=== PATIENT | male | born 1940 | race Caucasian/White ===

== ENCOUNTER → 2017-09-20 | Outpatient (CLI) | payer MEDICARE, OTHER ==
[~2017-09-20] MED LIST: ALLO300T2 PO; AMLO5TAB66 PO; ASPI325T52 PO; ATEN-187 PO; CALC600T2 PO; FINA5TAB2 PO; FOSI20TA3 PO; METF1000 PO; NITR0.4T50 SL; OXYB15TA3 PO; PIOG45TA4 PO; SIMV80TA2 PO; SITA1TAB2 PO
== END | disposition home or self-care (01) ==
LOC: RADPV 09:13
PROVIDERS: ATTEND Legal Medicine
DX: M19.011 Primary osteoarthritis, right shoulder (principal)

== ENCOUNTER → 2017-09-24 | Outpatient (CLI) | payer MEDICARE, OTHER | END | disposition home or self-care (01) | LOC: RADPV 10:42 | PROVIDERS: ATTEND Legal Medicine | DX: J85.2 Abscess of lung without pneumonia (principal); I70.0 Atherosclerosis of aorta | CPT/HCPCS: 71046 ==

== ENCOUNTER → 2019-01-27 | Outpatient (CLI) | payer MEDICARE, OTHER ==
[~2019-01-27] MED LIST changes: -ASPI325T52 PO; -FOSI20TA3 PO; +FOSI20TA66 PO; +[UNRECOGNIZED DRUG - CODE] PO
== END | disposition home or self-care (01) ==
LOC: RADPV 10:32
PROVIDERS: ATTEND Legal Medicine
DX: S62.336A Displaced fracture of neck of fifth metacarpal bone, right hand, initial encounter for closed fracture (principal); M19.041 Primary osteoarthritis, right hand; M79.89 Other specified soft tissue disorders; X58.XXXA Exposure to other specified factors, initial encounter; Y93.89 Activity, other specified; Y92.89 Other specified places as the place of occurrence of the external cause; Y99.8 Other external cause status

== ENCOUNTER → 2019-07-01 | Outpatient (CLI) | payer MEDICARE, OTHER ==
[~2019-07-01] MED LIST changes: +ASPI-1515 PO; -[UNRECOGNIZED DRUG - CODE] PO
== END | disposition home or self-care (01) ==
LOC: RADPV 08:46
PROVIDERS: ATTEND Legal Medicine
DX: M19.071 Primary osteoarthritis, right ankle and foot (principal); M79.89 Other specified soft tissue disorders

== ENCOUNTER → 2019-07-03 | Outpatient (CLI) | payer MEDICARE, OTHER | END | disposition home or self-care (01) | LOC: RADPV 08:24 | PROVIDERS: ATTEND Legal Medicine | DX: J44.9 Chronic obstructive pulmonary disease, unspecified (principal); M85.88 Other specified disorders of bone density and structure, other site; J18.9 Pneumonia, unspecified organism | CPT/HCPCS: 71100; 71120 ==

== ENCOUNTER → 2020-03-25 | Outpatient (CLI) | payer MEDICARE, OTHER ==
[2020-03-25 10:22] LABS: BASOPHILS % (AUTO) 0.4 % (0.0-2.0); EOSINOPHILS % (AUTO) 3.5 % (1.0-6.0); HEMATOCRIT 36.5 % (41-53); HEMOGLOBIN 12.2 g/dL (13.5-17.5); LYMPHOCYTES # (AUTO) 1.1 K/uL (1.0-4.8); MEAN CORPUSCULAR HEMOGLOBIN 32.3 pg (26.0-34.0); MEAN CORPUSCULAR HGB CONC 33.4 G/dL (31.0-37.0); MEAN CORPUSCULAR VOLUME 97 fL (80-100); MONOCYTES # (AUTO) 0.6 K/uL (0.1-1.0); MONOCYTES % (AUTO) 9.3 % (2.0-9.0); NEUTROPHILS # (AUTO) 4.3 K/uL (1.8-7.7); NEUTROPHILS % (AUTO) 68.8 % (40.0-70.0); PLATELET COUNT (AUTO) 221 K/uL (150-450); RED BLOOD CELL COUNT(AUTO) 3.77 MIL/uL (4.50-5.90); RED CELL DISTRIBUTION WIDTH 14.9 % (11.5-14.5)
[2020-03-25 10:33] LABS: HEMOGLOBIN A1C 5.8 % (3.8-5.6)
[2020-03-25 10:36] LABS: ALANINE AMINOTRANSFERASE 25 U/L (12-78); ALBUMIN 3.3 g/dL (3.4-5.0); ALKALINE PHOSPHATASE 48 U/L (46-116); ANION GAP 5 mmol/L (8-16); ASPARTATE AMINOTRANSFERASE 27 U/L (15-37); BILIRUBIN,TOTAL 0.3 mg/dL (0.1-1.0); CALCIUM, TOTAL 9.2 mg/dL (8.8-10.5); CARBON DIOXIDE 29 mmol/L (22-29); CHLORIDE 104 mmol/L (98-107); CHOL/HDL RATIO 2.9 (4.2-7.3); CHOLESTEROL 127 mg/dL (131-200); CREATININE 1.68 mg/dL (0.60-1.30); GLOMERULAR FILTR. RATE CALC 40 mL/min (>60); GLUCOSE,RANDOM 113 mg/dL (70-110); HDL CHOLESTEROL 44 mg/dL (40-60); LDL CHOL (CALC.) 65 mg/dL (0-130); POTASSIUM 4.6 mmol/L (3.5-5.1); SODIUM SERUM 138 mmol/L (136-145); TOTAL PROTEIN, SERUM 6.5 g/dL (6.4-8.2); TRIGLYCERIDES 89 mg/dL (15-150); UREA NITROGEN, BLOOD 29 mg/dL (7-18)
[2020-03-25 12:10] LABS: PROSTATE SPECIFIC ANTIGEN < 0.13 ng/mL (0.00-4.00)
== END | disposition home or self-care (01) ==
LOC: LABPV 08:36
PROVIDERS: ATTEND Legal Medicine
DX: E11.22 Type 2 diabetes mellitus with diabetic chronic kidney disease (principal); I12.9 Hypertensive chronic kidney disease with stage 1 through stage 4 chronic kidney disease, or unspecified chronic kidney disease; N18.3 Chronic kidney disease, stage 3 (moderate); E11.65 Type 2 diabetes mellitus with hyperglycemia; E11.69 Type 2 diabetes mellitus with other specified complication; E11.59 Type 2 diabetes mellitus with other circulatory complications; C61 Malignant neoplasm of prostate; E78.2 Mixed hyperlipidemia; E11.29 Type 2 diabetes mellitus with other diabetic kidney complication
CPT/HCPCS: 82043; 82306; 82570; 82607; 82746; 83036; 83735; 84153; 84443

== ENCOUNTER → 2020-06-22 | Outpatient (CLI) | payer MEDICARE, OTHER ==
[2020-06-22 10:47] LABS: BASOPHILS % (AUTO) 0.3 % (0.0-2.0); EOSINOPHILS % (AUTO) 3.5 % (1.0-6.0); HEMATOCRIT 35.4 % (41-53); HEMOGLOBIN 11.9 g/dL (13.5-17.5); LYMPHOCYTES # (AUTO) 1.1 K/uL (1.0-4.8); LYMPHOCYTES % (AUTO) 13.8 % (22.0-44.0); MEAN CORPUSCULAR HEMOGLOBIN 32.7 pg (26.0-34.0); MEAN CORPUSCULAR HGB CONC 33.5 G/dL (31.0-37.0); MEAN CORPUSCULAR VOLUME 98 fL (80-100); MONOCYTES # (AUTO) 0.6 K/uL (0.1-1.0); MONOCYTES % (AUTO) 7.5 % (2.0-9.0); NEUTROPHILS # (AUTO) 6.2 K/uL (1.8-7.7); NEUTROPHILS % (AUTO) 74.9 % (40.0-70.0); PLATELET COUNT (AUTO) 220 K/uL (150-450); RED BLOOD CELL COUNT(AUTO) 3.62 MIL/uL (4.50-5.90); RED CELL DISTRIBUTION WIDTH 14.8 % (11.5-14.5)
[2020-06-22 10:59] LABS: HEMOGLOBIN A1C 5.9 % (3.8-5.6)
[2020-06-22 11:05] LABS: BILIRUBIN,TOTAL 0.3 mg/dL (0.1-1.0); CHOL/HDL RATIO 2.7 (4.2-7.3); CREATININE 1.38 mg/dL (0.60-1.30); PHOSPHORUS 3.6 mg/dL (2.5-4.9); POTASSIUM 4.4 mmol/L (3.5-5.1); TOTAL PROTEIN, SERUM 6.5 g/dL (6.4-8.2)
[2020-06-22 12:06] LABS: APPEARANCE,URINE CLEAR (CLEAR); BILIRUBIN,URINE NEGATIVE (NEGATIVE); GLUCOSE, URINE (UA) NEGATIVE (NEGATIVE); KETONES,URINE NEGATIVE (NEGATIVE); LEUKOCYTE ESTERASE ,URINE NEGATIVE (NEGATIVE); NITRATE,URINE NEGATIVE (NEGATIVE); OCCULT BLOOD,URINE NEGATIVE (NEGATIVE); PROTEIN,URINE NEGATIVE (NEGATIVE); UROBILINOGEN,URINE 0.2 mg/dL (<=1.0)
== END | disposition home or self-care (01) ==
LOC: LABPV 08:17
PROVIDERS: ATTEND Internal Medicine Nephrology
DX: I12.9 Hypertensive chronic kidney disease with stage 1 through stage 4 chronic kidney disease, or unspecified chronic kidney disease (principal); E11.22 Type 2 diabetes mellitus with diabetic chronic kidney disease; N18.32 Chronic kidney disease, stage 3b; E78.5 Hyperlipidemia, unspecified; E11.65 Type 2 diabetes mellitus with hyperglycemia
CPT/HCPCS: 82043; 82570; 83036; 83735; 84100

== ENCOUNTER → 2023-10-29 | Outpatient (CLI) | payer MEDICARE, OTHER ==
[~2023-10-29] MED LIST changes: +FINA-37 PO; -FINA5TAB2 PO
== END | disposition home or self-care (01) ==
LOC: RADMN 14:09
PROVIDERS: ATTEND Legal Medicine
DX: J20.9 Acute bronchitis, unspecified (principal); I70.0 Atherosclerosis of aorta
CPT/HCPCS: 71046

== ENCOUNTER 2024-06-02 07:10 | Inpatient (IN) | payer MEDICARE, OTHER ==
[~2024-06-02] VITALS: Ht 172.7 cm; Wt 90.9 kg
[2024-06-02] MEDS ORDERED: FINA5TAB41 PO (07:21)
[2024-06-02] MEDS ORDERED: SITA1TBM PO (07:21)
[2024-06-02] MEDS ORDERED: CALC-1000 PO (07:21)
[2024-06-02] MEDS ORDERED: FOSI20TA98 PO ×2 (07:21)
[2024-06-02] MEDS ORDERED: PIOG45TA64 PO (07:21)
[2024-06-02] MEDS ORDERED: MULT-1366 PO (07:21)
[2024-06-02] MEDS ORDERED: METH-386 PO ×2 (07:21→17:58)
[2024-06-02] MEDS ORDERED: ESCI-8 PO (07:21)
[2024-06-02] MEDS ORDERED: ASPI81TA87 PO (07:21)
[2024-06-02] MEDS ORDERED: ATOR20TA PO (07:21)
[2024-06-02] MEDS: ONDANSETRON HCL 4 MG/2 ML VIAL IVP ONE (08:15)
[2024-06-02] MEDS: KETOROLAC TROMETHAMINE 30 MG/ML VIAL IVP ONE (08:16)
[2024-06-02] MEDS: HYDROmorphone HCL 2 MG/ML SYRINGE IVP ONE (08:16)
[2024-06-02 08:20] LABS: BASOPHILS % (AUTO) 1.4 % (0.0-2.0); EOSINOPHILS % (AUTO) 1.9 % (1.0-6.0); HEMATOCRIT 40.6 % (41-53); HEMOGLOBIN 13.4 g/dL (13.5-17.5); LYMPHOCYTES # (AUTO) 1.6 K/uL (1.0-4.8); LYMPHOCYTES % (AUTO) 13.9 % (22.0-44.0); MEAN CORPUSCULAR HEMOGLOBIN 32.3 pg (26.0-34.0); MEAN CORPUSCULAR HGB CONC 33.1 G/dL (31.0-37.0); MEAN CORPUSCULAR VOLUME 97 fL (80-100); MONOCYTES # (AUTO) 1.1 K/uL (0.1-1.0); NEUTROPHILS # (AUTO) 8.4 K/uL (1.8-7.7); NEUTROPHILS % (AUTO) 72.8 % (40.0-70.0); PLATELET COUNT (AUTO) 235 K/uL (150-450); RED BLOOD CELL COUNT(AUTO) 4.17 MIL/uL (4.50-5.90); RED CELL DISTRIBUTION WIDTH 14.2 % (11.5-14.5); WHITE BLOOD COUNT (AUTO) 11.5 K/uL (4.5-11.0)
[2024-06-02 08:35] LABS: CALCIUM, TOTAL 9.7 mg/dL (8.8-10.5); CREATININE 1.65 mg/dL (0.60-1.30); POTASSIUM 4.4 mmol/L (3.5-5.1)
[2024-06-02 08:43] LABS: TROPONIN I-HIGH SENSITIVITY 39 ng/L (<76)
[2024-06-02] MEDS: MORPHINE SULFATE 4 MG/ML SYRINGE IVP ONE (09:49)
[2024-06-02] MEDS: ACETAMINOPHEN 325 MG TABLET PO PRN (14:30)
[2024-06-02] MEDS ORDERED: HYDROCODONE/ACETAMINOPHEN 5-325 MG TABLET PO PRN ×2 (15:15)
[2024-06-02] MEDS ORDERED: DEXTROSE 50%-WATER 25 GM/50 ML SYRINGE IVP PRN (15:15)
[2024-06-02 15:46] VITALS: BP 105/59; PULSE 90; RESP 18; TEMP 98; O2SAT 93
[2024-06-02 16:15] VITALS: BP 105/59; PULSE 90; RESP 18; TEMP 98; O2SAT 93
[2024-06-02] MEDS: HEPARIN SODIUM,PORCINE 5,000 UNITS/ML VIAL SQ SCH (16:26)
[2024-06-02] MEDS: HYDROCODONE/ACETAMINOPHEN 5-325 MG TABLET PO PRN (16:27)
[2024-06-02] MEDS ORDERED: AMLO-258 PO (17:51)
[2024-06-02] MEDS ORDERED: METH5POW5 PO (17:54)
[2024-06-02] MEDS ORDERED: LORA-1370 PO (17:57)
[2024-06-02] MEDS ORDERED: [UNRECOGNIZED DRUG - CODE] PO (17:57)
[2024-06-02] MEDS ORDERED: METF-1211 PO (17:58)
[2024-06-02 20:00] VITALS: BP 93/54; PULSE 98; RESP 19; TEMP 98.3; O2SAT 93
[2024-06-02] MEDS: DOCUSATE SODIUM 100 MG CAPSULE PO SCH (20:59)
[2024-06-03] VITALS: BP 107/65; PULSE 101; RESP 18; TEMP 99.3; O2SAT 93
[2024-06-03 04:00] VITALS: BP 112/56; PULSE 108; RESP 19; TEMP 98.6; O2SAT 94
[2024-06-03] MEDS: INSULIN LISPRO 100 UNITS/ML SQ PRN (05:15)
[2024-06-03 06:13] LABS: APPEARANCE,URINE CLEAR (CLEAR); BILIRUBIN,URINE NEGATIVE (NEGATIVE); COLOR,URINE YELLOW (YELLOW); GLUCOSE, URINE (UA) NEGATIVE (NEGATIVE); KETONES,URINE NEGATIVE (NEGATIVE); LEUKOCYTE ESTERASE ,URINE NEGATIVE (NEGATIVE); NITRATE,URINE NEGATIVE (NEGATIVE); OCCULT BLOOD,URINE NEGATIVE (NEGATIVE); PROTEIN,URINE TRACE mg/dL (NEGATIVE); SPECIFIC GRAVITIY, URINE 1.026 (1.003-1.030); UROBILINOGEN,URINE <=1.0 mg/dL (<=1.0)
[2024-06-03 06:33] LABS: BACTERIA,URINE Few /HPF (None Seen); RBC,URINE 0-2 /HPF (0-2); WBC,URINE 0-2 /HPF (0-5)
[2024-06-03 07:24] VITALS: BP 130/62; PULSE 92; RESP 18; TEMP 98.4; O2SAT 94
[2024-06-03] MEDS: FAMOTIDINE 20 MG TABLET PO SCH (08:36)
[2024-06-03] MEDS: ASPIRIN 81 MG CHEWABLE TABLET PO SCH (08:37)
[2024-06-03] MEDS: HYDROCODONE/ACETAMINOPHEN 5-325 MG TABLET PO PRN (08:53)
[2024-06-03 11:54] VITALS: BP 135/69; PULSE 99; RESP 18; TEMP 98.1; O2SAT 95
[2024-06-03] MEDS: PredniSONE 20 MG TABLET PO SCH (12:48)
[2024-06-03 15:30] VITALS: BP 121/67; PULSE 89; RESP 18; TEMP 98.3; O2SAT 96
[2024-06-03 20:05] VITALS: BP 116/56; PULSE 93; RESP 19; TEMP 98.6; O2SAT 91
[2024-06-03] MEDS: BUDESONIDE 0.5 MG/2 ML NEB SOLUTION NEB SCH (21:00)
[2024-06-03] MEDS: MethylPREDNISolone SOD SUCC 40 MG/ML VIAL IVP SCH (21:05)
[2024-06-04] VITALS (11 sets, daily range): BP systolic 97–130; BP diastolic 50–84; PULSE 80–94; RESP 17–20; TEMP 97.9–98.2; O2SAT 91–98
[2024-06-04 07:04] LABS: CALCIUM, TOTAL 8.6 mg/dL (8.8-10.5); CREATININE 1.82 mg/dL (0.60-1.30); POTASSIUM 4.3 mmol/L (3.5-5.1)
[2024-06-04 08:15] LABS: BASOPHILS % (AUTO) 0.2 % (0.0-2.0); EOSINOPHILS % (AUTO) 0.1 % (1.0-6.0); HEMOGLOBIN 13.2 g/dL (13.5-17.5); LYMPHOCYTES # (AUTO) 0.9 K/uL (1.0-4.8); LYMPHOCYTES % (AUTO) 13.4 % (22.0-44.0); MEAN CORPUSCULAR HEMOGLOBIN 32.9 pg (26.0-34.0); MEAN CORPUSCULAR HGB CONC 33.8 G/dL (31.0-37.0); MEAN CORPUSCULAR VOLUME 97 fL (80-100); MONOCYTES # (AUTO) 0.1 K/uL (0.1-1.0); MONOCYTES % (AUTO) 1.5 % (2.0-9.0); NEUTROPHILS % (AUTO) 84.8 % (40.0-70.0); PLATELET COUNT (AUTO) 224 K/uL (150-450); RED BLOOD CELL COUNT(AUTO) 4.01 MIL/uL (4.50-5.90); RED CELL DISTRIBUTION WIDTH 14.1 % (11.5-14.5)
[2024-06-04 09:00] LABS: GLUCOMETER DEV NAME(LOC) 5S.1C; GLUCOSE,POINT OF CARE 212 MG/DL (70-110)
[2024-06-04 09:33] LABS: GLUCOMETER DEV NAME(LOC) 5N.2C; GLUCOSE,POINT OF CARE 143 MG/DL (70-110)
[2024-06-04 09:33] LABS: GLUCOMETER DEV NAME(LOC) 5N.2C; GLUCOSE,POINT OF CARE 138 MG/DL (70-110)
[2024-06-04 09:33] LABS: GLUCOMETER DEV NAME(LOC) 5N.2C; GLUCOSE,POINT OF CARE 220 MG/DL (70-110)
[2024-06-04 19:39] LABS: MAGNESIUM 2.2 mg/dL (1.80-2.40); POTASSIUM 4.3 mmol/L (3.5-5.1)
[2024-06-05] VITALS (10 sets, daily range): BP systolic 108–142; BP diastolic 41–88; PULSE 67–97; RESP 18–20; TEMP 97.8–98.1; O2SAT 92–99
[2024-06-05] MEDS: ALBUTEROL SULFATE 2.5 MG/0.5 ML NEB SOLUTION NEB PRN (20:00)
[2024-06-06] VITALS (7 sets, daily range): BP systolic 121–144; BP diastolic 47–69; PULSE 64–87; RESP 18–20; TEMP 97–98; O2SAT 93–97
[2024-06-06] MEDS: PredniSONE 20 MG TABLET PO ONE ×2 (09:18→11:08)
[2024-06-06] MEDS ORDERED: BUDE90AE3 IH (10:10)
[2024-06-06] MEDS ORDERED: HYDR-4062 PO (10:10)
[2024-06-06] MEDS ORDERED: GABA-529 PO (10:10)
[2024-06-06] MEDS ORDERED: ALBU18HF12 IH (10:10)
[2024-06-06] MEDS ORDERED: PRED-729 PO (10:10)
[2024-06-06 11:26] LABS: BASOPHILS % (AUTO) 0.4 % (0.0-2.0); EOSINOPHILS % (AUTO) 0 % (1.0-6.0); HEMATOCRIT 36.5 % (41-53); HEMOGLOBIN 12.1 g/dL (13.5-17.5); LYMPHOCYTES # (AUTO) 0.5 K/uL (1.0-4.8); LYMPHOCYTES % (AUTO) 4.7 % (22.0-44.0); MEAN CORPUSCULAR HEMOGLOBIN 32.4 pg (26.0-34.0); MEAN CORPUSCULAR VOLUME 98 fL (80-100); MONOCYTES # (AUTO) 0.6 K/uL (0.1-1.0); MONOCYTES % (AUTO) 5.6 % (2.0-9.0); NEUTROPHILS # (AUTO) 8.8 K/uL (1.8-7.7); PLATELET COUNT (AUTO) 203 K/uL (150-450); RED BLOOD CELL COUNT(AUTO) 3.72 MIL/uL (4.50-5.90); RED CELL DISTRIBUTION WIDTH 14.6 % (11.5-14.5); WHITE BLOOD COUNT (AUTO) 9.9 K/uL (4.5-11.0)
[2024-06-06 11:28] LABS: NEUTROPHILS % (AUTO) 89.3 % (40.0-70.0)
[2024-06-06 11:35] LABS: CALCIUM, TOTAL 8.2 mg/dL (8.8-10.5); CREATININE 1.73 mg/dL (0.60-1.30)
[2024-06-06] MEDS ORDERED: ATORVASTATIN CALCIUM 20 MG TABLET PO SCH (21:00)
[2024-06-07] MEDS ORDERED: PredniSONE 20 MG TABLET PO SCH (09:00)
[2024-06-08 21:26] LABS: GLUCOMETER DEV NAME(LOC) 5S.1C; GLUCOSE,POINT OF CARE 243 MG/DL (70-110)
[2024-06-10 11:26] LABS: GLUCOMETER DEV NAME(LOC) 5S.2D; GLUCOSE,POINT OF CARE 141 MG/DL (70-110)
[2024-06-10 11:26] LABS: GLUCOMETER DEV NAME(LOC) 5S.2D; GLUCOSE,POINT OF CARE 180 MG/DL (70-110)
[2024-06-10 11:26] LABS: GLUCOMETER DEV NAME(LOC) 5S.2D; GLUCOSE,POINT OF CARE 311 MG/DL (70-110)
[2024-06-10 11:26] LABS: GLUCOMETER DEV NAME(LOC) 5S.2D; GLUCOSE,POINT OF CARE 219 MG/DL (70-110)
[2024-06-10 11:26] LABS: GLUCOMETER DEV NAME(LOC) 5S.2D; GLUCOSE,POINT OF CARE 193 MG/DL (70-110)
[2024-06-10 11:26] LABS: GLUCOMETER DEV NAME(LOC) 5S.2D; GLUCOSE,POINT OF CARE 155 MG/DL (70-110)
[2024-06-14 11:21] LABS: GLUCOMETER DEV NAME(LOC) 5N.1D; GLUCOSE,POINT OF CARE 168 MG/DL (70-110)
[2024-06-14 11:21] LABS: GLUCOMETER DEV NAME(LOC) 5N.1D; GLUCOSE,POINT OF CARE 148 MG/DL (70-110)
[2024-06-14 11:21] LABS: GLUCOMETER DEV NAME(LOC) 5N.1D; GLUCOSE,POINT OF CARE 256 MG/DL (70-110)
[2024-06-14 11:21] LABS: GLUCOMETER DEV NAME(LOC) 5N.1D; GLUCOSE,POINT OF CARE 182 MG/DL (70-110)
[2024-06-14 11:21] LABS: GLUCOMETER DEV NAME(LOC) 5N.1D; GLUCOSE,POINT OF CARE 206 MG/DL (70-110)
== END 2024-06-06 17:40 | disposition home or self-care (01) | DRG 291 ==
LOC: EMS 07:10 → EDH 11:05 → 5S 14:09
PROVIDERS: ADMIT Internal Medicine; ATTEND Internal Medicine
DX: I13.0 Hypertensive heart and chronic kidney disease with heart failure and stage 1 through stage 4 chronic kidney disease, or unspecified chronic kidney disease (principal); I50.33 Acute on chronic diastolic (congestive) heart failure; J96.01 Acute respiratory failure with hypoxia; J44.1 Chronic obstructive pulmonary disease with (acute) exacerbation; N17.9 Acute kidney failure, unspecified; E66.9 Obesity, unspecified; M16.12 Unilateral primary osteoarthritis, left hip; E11.22 Type 2 diabetes mellitus with diabetic chronic kidney disease; G47.33 Obstructive sleep apnea (adult) (pediatric); Z68.30 Body mass index [BMI] 30.0-30.9, adult; M51.369 Other intervertebral disc degeneration, lumbar region without mention of lumbar back pain or lower extremity pain; E78.00 Pure hypercholesterolemia, unspecified; I25.10 Atherosclerotic heart disease of native coronary artery without angina pectoris; N18.30 Chronic kidney disease, stage 3 unspecified; E05.90 Thyrotoxicosis, unspecified without thyrotoxic crisis or storm; M10.9 Gout, unspecified; Z87.891 Personal history of nicotine dependence; Z88.8 Allergy status to other drugs, medicaments and biological substances; Z79.899 Other long term (current) drug therapy; Z85.46 Personal history of malignant neoplasm of prostate; Z92.3 Personal history of irradiation; Z82.49 Family history of ischemic heart disease and other diseases of the circulatory system; Z83.3 Family history of diabetes mellitus; M54.10 Radiculopathy, site unspecified
CPT/HCPCS: 71045; 71250; 72100; 72131; 73503; 80048; 81001; 82962; 83690; 83735; 84132; 84484; 85025; 93005; 93306; 93970; 94640; 97110; 97116; 97140; 97163; 97166; 97530; 97535; 99285; J1171; J1644; J1885; J2270; J2405; 36415-L1; 36415-TC; J7613

== ENCOUNTER 2024-07-29 08:28 | Inpatient (IN) | payer MEDICARE, OTHER ==
[~2024-07-29] VITALS: Ht 167.6 cm; Wt 77.3 kg
[~2024-07-29 08:28] MED LIST changes: -ALLO300T2 PO; +AMLO-258 PO; -AMLO5TAB66 PO; -ASPI-1515 PO; +ASPI81TA87 PO; -ATEN-187 PO; +ATOR20TA PO; +CALC-1000 PO; -CALC600T2 PO; +ESCI-8 PO; -FINA-37 PO; +FINA5TAB41 PO; +FLUT1BLS15 IH; -FOSI20TA66 PO; +FOSI20TA98 PO; +GABA-1216 PO; +GABA-529 PO; +HYDR-4062 PO; +METF-1211 PO; -METF1000 PO; +METH-386 PO; +MULT-1366 PO; -OXYB15TA3 PO; -PIOG45TA4 PO; +PIOG45TA64 PO; +PRED-729 PO; -SIMV80TA2 PO; -SITA1TAB2 PO; +SITA1TBM PO; +[UNRECOGNIZED DRUG - CODE] PO
[2024-07-29 08:51] LABS: COVID AG,FIA SOURCE NASAL SWAB
[2024-07-29 09:24] LABS: INFLUENZA TYPE A NEGATIVE FOR TYPE A (NEGATIVE); INFLUENZA TYPE B NEGATIVE FOR TYPE B (NEGATIVE); SARS-COV2 (COVID) ANTIGEN,FIA Negative (Negative)
[2024-07-29 10:37] LABS: CALCIUM, TOTAL 8.5 mg/dL (8.8-10.5); CREATININE 1.79 mg/dL (0.60-1.30); POTASSIUM 4.3 mmol/L (3.5-5.1)
[2024-07-29 10:38] LABS: BASOPHILS % (AUTO) 0.5 % (0.0-2.0); EOSINOPHILS % (AUTO) 0.7 % (1.0-6.0); HEMATOCRIT 33.4 % (41-53); HEMOGLOBIN 10.8 g/dL (13.5-17.5); LYMPHOCYTES # (AUTO) 1.3 K/uL (1.0-4.8); LYMPHOCYTES % (AUTO) 8.8 % (22.0-44.0); MEAN CORPUSCULAR HEMOGLOBIN 31.4 pg (26.0-34.0); MEAN CORPUSCULAR HGB CONC 32.4 G/dL (31.0-37.0); MEAN CORPUSCULAR VOLUME 97 fL (80-100); MONOCYTES # (AUTO) 1.2 K/uL (0.1-1.0); MONOCYTES % (AUTO) 8.8 % (2.0-9.0); NEUTROPHILS # (AUTO) 11.5 K/uL (1.8-7.7); NEUTROPHILS % (AUTO) 81.2 % (40.0-70.0); PLATELET COUNT (AUTO) 343 K/uL (150-450); RED BLOOD CELL COUNT(AUTO) 3.44 MIL/uL (4.50-5.90); RED CELL DISTRIBUTION WIDTH 14.1 % (11.5-14.5); WHITE BLOOD COUNT (AUTO) 14.2 K/uL (4.5-11.0)
[2024-07-29 10:45] LABS: TROPONIN I-HIGH SENSITIVITY 33 ng/L (<76)
[2024-07-29] MEDS ORDERED: 0.9% SODIUM CHLORIDE 10 ML SYRINGE IVP PRN (11:15)
[2024-07-29] MEDS ORDERED: GABA-1181 PO (11:24)
[2024-07-29] MEDS ORDERED: AMLO-257 PO (11:25)
[2024-07-29 11:58] LABS: PROTHROMBIN TIME 11.4 SEC (9.4-11.6)
[2024-07-29] MEDS: CefTRIAXone 1 GM/DEXTROSE 50 ML IV ONE (12:03)
[2024-07-29] MEDS: SODIUM CHLORIDE 0.9% 2,300 ML IV ONE (12:03)
[2024-07-29 12:05] LABS: LACTIC ACID 1.3 mmol/L (0.4-2.0)
[2024-07-29] MEDS: SODIUM CHLORIDE 0.9% 250 ML IV ONE (12:16)
[2024-07-29 18:03] VITALS: BP 135/89; PULSE 83; RESP 20; TEMP 97.6; O2SAT 92
[2024-07-29 20:02] VITALS: BP 122/66; PULSE 99; RESP 20; TEMP 98.9; O2SAT 92
[2024-07-29] MEDS: FINASTERIDE 5 MG TABLET PO SCH (20:27)
[2024-07-29] MEDS: ATORVASTATIN CALCIUM 20 MG TABLET PO SCH (20:27)
[2024-07-29] MEDS: METHIMAZOLE 5 MG TABLET PO SCH (20:27)
[2024-07-30 05:14] VITALS: BP 108/60; PULSE 95; RESP 18; TEMP 98.2; O2SAT 91
[2024-07-30 05:37] VITALS: PULSE 85; O2SAT 92
[2024-07-30 05:55] LABS: APPEARANCE,URINE CLEAR (CLEAR); BILIRUBIN,URINE NEGATIVE (NEGATIVE); COLOR,URINE LIGHT YELLOW (YELLOW); GLUCOSE, URINE (UA) NEGATIVE (NEGATIVE); KETONES,URINE NEGATIVE (NEGATIVE); LEUKOCYTE ESTERASE ,URINE NEGATIVE (NEGATIVE); NITRATE,URINE NEGATIVE (NEGATIVE); OCCULT BLOOD,URINE NEGATIVE (NEGATIVE); PROTEIN,URINE TRACE mg/dL (NEGATIVE); SPECIFIC GRAVITIY, URINE 1.018 (1.003-1.030); UROBILINOGEN,URINE <=1.0 mg/dL (<=1.0)
[2024-07-30 06:25] LABS: GLUCOMETER DEV NAME(LOC) 5S.1D; GLUCOSE,POINT OF CARE 161 MG/DL (70-110)
[2024-07-30 08:13] VITALS: BP 120/93; PULSE 87; RESP 18; TEMP 98.3; O2SAT 94
[2024-07-30] MEDS: AmLODIPine BESYLATE 5 MG TABLET PO SCH (09:26)
[2024-07-30] MEDS: FOSINOPRIL SODIUM 20 MG TABLET PO SCH (09:26)
[2024-07-30] MEDS: ESCITALOPRAM OXALATE 10 MG TABLET PO SCH (09:27)
[2024-07-30] MEDS: PIOGLITAZONE HCL 45 MG TABLET PO SCH (09:28)
[2024-07-30] MEDS: ASPIRIN 81 MG DR TABLET PO SCH (09:28)
[2024-07-30] MEDS: MetFORMIN HCL 500 MG TABLET PO SCH (09:28)
[2024-07-30] MEDS: GABAPENTIN 100 MG CAPSULE PO SCH ×2 (09:28→15:49)
[2024-07-30] MEDS: SitaGLIPtin PHOSPHATE 50 MG TABLET PO SCH (09:29)
[2024-07-30] MEDS: SODIUM CHLORIDE 0.9% 1,000 ML IV ONE (15:45)
[2024-07-30] MEDS: MEGESTROL ACETATE 40 MG TABLET PO SCH (15:50)
[2024-07-30 16:17] VITALS: BP 106/56; PULSE 77; RESP 18; TEMP 98.4; O2SAT 92
[2024-07-30 20:00] VITALS: BP 120/71; PULSE 96; RESP 18; TEMP 98.2; O2SAT 90
[2024-07-30 20:41] VITALS: PULSE 91; O2SAT 92
[2024-07-31 05:30] VITALS: BP 110/59; PULSE 97; RESP 20; TEMP 98.2; O2SAT 94
[2024-07-31 07:28] LABS: BASOPHILS % (AUTO) 0.3 % (0.0-2.0); CALCIUM, TOTAL 8.5 mg/dL (8.8-10.5); CREATININE 1.56 mg/dL (0.60-1.30); EOSINOPHILS % (AUTO) 2.7 % (1.0-6.0); HEMOGLOBIN 11.6 g/dL (13.5-17.5); LYMPHOCYTES # (AUTO) 1.5 K/uL (1.0-4.8); LYMPHOCYTES % (AUTO) 11.2 % (22.0-44.0); MEAN CORPUSCULAR HEMOGLOBIN 31.8 pg (26.0-34.0); MEAN CORPUSCULAR VOLUME 96 fL (80-100); MONOCYTES # (AUTO) 0.9 K/uL (0.1-1.0); MONOCYTES % (AUTO) 6.3 % (2.0-9.0); NEUTROPHILS % (AUTO) 79.5 % (40.0-70.0); PLATELET COUNT (AUTO) 359 K/uL (150-450); POTASSIUM 4.1 mmol/L (3.5-5.1); RED BLOOD CELL COUNT(AUTO) 3.64 MIL/uL (4.50-5.90); RED CELL DISTRIBUTION WIDTH 14.2 % (11.5-14.5); WHITE BLOOD COUNT (AUTO) 13.8 K/uL (4.5-11.0)
[2024-07-31 07:46] VITALS: BP 135/60; PULSE 90; RESP 17; TEMP 97.9; O2SAT 93
[2024-07-31] MEDS ORDERED: MEGE40TA8 PO (13:04)
[2024-08-04] MEDS ORDERED: FLUT1BLS15 IH ×2 (11:31→11:54)
== END 2024-07-31 17:45 | disposition home or self-care (01) | DRG 177 ==
LOC: EMS 08:30 → EDH 15:57 → 4E 18:13
PROVIDERS: ADMIT Internal Medicine; ATTEND Internal Medicine
DX: J15.69 Pneumonia due to other Gram-negative bacteria (principal); N17.0 Acute kidney failure with tubular necrosis; J44.0 Chronic obstructive pulmonary disease with (acute) lower respiratory infection; J96.10 Chronic respiratory failure, unspecified whether with hypoxia or hypercapnia; R64 Cachexia; R62.7 Adult failure to thrive; Z20.822 Contact with and (suspected) exposure to COVID-19; E86.0 Dehydration; M10.9 Gout, unspecified; E11.9 Type 2 diabetes mellitus without complications; I71.23 Aneurysm of the descending thoracic aorta, without rupture; D63.8 Anemia in other chronic diseases classified elsewhere; I11.0 Hypertensive heart disease with heart failure; I50.9 Heart failure, unspecified; E78.5 Hyperlipidemia, unspecified; I25.10 Atherosclerotic heart disease of native coronary artery without angina pectoris; Z79.82 Long term (current) use of aspirin; Z99.81 Dependence on supplemental oxygen; Z79.84 Long term (current) use of oral hypoglycemic drugs; Z85.46 Personal history of malignant neoplasm of prostate; Z92.3 Personal history of irradiation; Z79.899 Other long term (current) drug therapy; Z88.8 Allergy status to other drugs, medicaments and biological substances
CPT/HCPCS: 71045; 71250; 72192; 74150; 80048; 81003; 82271; 82962; 83605; 83690; 83880; 84145; 84153; 84484; 85025; 85610; 87040; 87804; 93005; 97116; 97162; 99291; G0378; J0696; J7030; J7040; 36415-L1; 36415-TC

== ENCOUNTER → 2024-11-19 | Outpatient (CLI) | payer MEDICARE, OTHER ==
[~2024-11-19] VITALS: Ht 162.6 cm; Wt 97.0 kg
[~2024-11-19] MED LIST changes: +AMLO-257 PO; -AMLO-258 PO; +DOXY-354 PO; -GABA-529 PO; -HYDR-4062 PO; -PRED-729 PO
[2024-11-19 10:22] VITALS: BP 126/64; PULSE 104; RESP 18; TEMP 98.8; O2SAT 94
== END | disposition home or self-care (01) ==
LOC: SRCNTR 10:15
PROVIDERS: ATTEND Internal Medicine Pulmonary Disease
DX: J96.11 Chronic respiratory failure with hypoxia (principal); J44.1 Chronic obstructive pulmonary disease with (acute) exacerbation; I11.0 Hypertensive heart disease with heart failure; I50.33 Acute on chronic diastolic (congestive) heart failure; E03.9 Hypothyroidism, unspecified; E11.9 Type 2 diabetes mellitus without complications; M10.9 Gout, unspecified; E66.9 Obesity, unspecified; Z79.82 Long term (current) use of aspirin; Z79.84 Long term (current) use of oral hypoglycemic drugs; Z79.899 Other long term (current) drug therapy; Z85.46 Personal history of malignant neoplasm of prostate; Z87.891 Personal history of nicotine dependence; Z82.49 Family history of ischemic heart disease and other diseases of the circulatory system; Z90.49 Acquired absence of other specified parts of digestive tract; Z90.79 Acquired absence of other genital organ(s); Z92.3 Personal history of irradiation
CPT/HCPCS: G0463; Z7500